=== PATIENT | female | born 1980 | race Caucasian/White ===

== ENCOUNTER 2017-04-12 08:59 | Emergency (ER) | payer OTHER ==
--- NOTE | ~2017-04-12 | CT4 ---
[facility] A Service of [facility] & [facility] RADIOLOGY TEXT RESULTS PATIENT: REINA KIRAN LOCATION: [facility] : 84 UNIT #: [id number] AGE: [address]: Cosmo Diaz MD SEX: F ORDER DR: [id number] [facility] [address] [place], [place] [address] [id number] E MR#: [id number] #: [id number] NAME: REINA KIRAN : 1980 SEX: F STUDY DATE/TIME: 04/12/2017 10:16 UNIT: [facility] ROOM: STUDY DESCRIPTION: CT Abd and Pelv Wo Cont Attending Physician: Cosmo Diaz M.D. Ordering Physician: Cosmo Diaz M.D. Primary Care Physician: Primary Care Physician No MEDICAL IMAGING REPORT This report is preliminary unless electronic signature is present EXAM CT of the abdomen and pelvis without contrast. Low back pain and dysuria for 3-[address] images were obtained from the dome of the diaphragm through the symphysis pubis. No oral or intravenous contrast material was administered. This CT exam was performed with one or more of the following radiation dose reduction techniques: Automatic exposure control, adjustment of mA and/or kV according to patient size, and iterative reconstruction. FINDINGS Images through the lung basis are clear. Liver and gallbladder appear unremarkable. Stomach and proximal small bowel are within normal limits, as are the adrenal glands, pancreas and kidneys given unenhanced technique. No urinary stones are identified. There is no hydronephrosis. Patient is noted to have a retroaortic left renal vein, which is a normal anatomic variant. No free fluid or adenopathy is seen within the abdomen. Appendix is visualized and is within normal limits and there is no evidence of mechanical bowel obstruction. Urinary bladder appears unremarkable. Patient does have fairly extensive fecal burden seen throughout the colon, particularly within the rectum, and correlation with any history of constipation is suggested. Uterus, I think, is probably within normal limits for unenhanced technique. There is probably a trace amount of free fluid within the pelvis, which can be a normal finding in a premenopausal woman. Review of bony windows does not demonstrate any aggressive osseous abnormalities. IMPRESSION [facility] A Service of [facility] & [facility] RADIOLOGY TEXT RESULTS PATIENT: REINA KIRAN LOCATION: [facility] : 84 UNIT #: [id number] AGE: [address]: Cosmo Diaz MD SEX: F ORDER DR: 1. No renal stones are identified. There is no hydroureteronephrosis. No distal ureteral or bladder stones are seen. 2. Fairly extensive fecal burden seen throughout the colon, particularly within the rectum. Correlation with any history of constipation is recommended. 3. Solid organs appear unremarkable. There is no evidence of mechanical bowel obstruction. 4. The appendix is visualized and is within normal limits. Dictated by... Hillary Holman M.D. THIS IS AN ELECTRONICALLY VERIFIED REPORT Hillary Holman M.D. at 04/13/2017 4:52 PM AFF/psc TD: 04/12/2017 17:27 JOB #: [id number] MEDICAL IMAGING REPORT Page 1 of 1 COPY
[~2017-04-12 08:59] MED LIST: CIPRO PO; VIBRAMYCIN100 M1 PO
[2017-04-12 09:35] LABS: URINE SOURCE CLEAN CATCH
[2017-04-12 10:20] LABS: BASOPHIL# 0.1 X10e3 (0-0.3); EOSINOPHIL# 1.2 X10e3 (0-0.7); EOSINOPHIL% 10.1 % (0.0-7.0); HEMATOCRIT 41.7 % (35.0-45.0); HEMOGLOBIN 13.6 gm/dL (12.0-16.0); LYMPHOCYTE# 2.5 X10e3 (1.0-3.5); LYMPHOCYTE% 20.5 % (17.0-45.0); MEAN CELL VOLUME 91.9 FL (83-96); MEAN CORPUSCULAR HEMOGLOBIN 30.1 PG (28-34); MEAN CORPUSCULAR HGB CONC 32.7 g/dL (30-36); MEAN PLATELET VOLUME 11.1 FL (6.5-11.5); NEUTROPHIL# 7.2 X10e3 (1.5-7.1); NEUTROPHIL% 60.4 % (40-75); RED BLOOD COUNT 4.54 X10e (3.90-5.30); RED CELL DISTRIBUTION WIDTH 14.4 % (11.0-15.5)
[2017-04-12 10:23] LABS: PLATELET COUNT 152 X10e3 (140-420)
[2017-04-12 10:24] LABS: DIFF IND YES
[2017-04-12 10:33] LABS: BILIRUBIN, DIRECT 0.1 mg/dL (0.0-0.2); BILIRUBIN,INDIRECT 0.1 mg/dL (0.0-0.9); BILIRUBIN,TOTAL 0.2 mg/dL (0.2-2.0); BUN/CREATININE RATIO 15.71; CALCIUM SERUM 8.8 mg/dL (8.4-10.2); CREATININE SERUM 0.7 mg/dL (0.6-1.4); POTASSIUM 3.7 mmol/L (3.5-5.1); PROTEIN TOTAL SERUM 7.1 g/dL (6.0-8.3)
[2017-04-12 10:52] LABS: PLATELET ESTIMATE NORMAL (NORMAL)
[2017-04-12 10:53] LABS: BURR CELLS PRESENT
[2017-04-12 11:02] LABS: URINE APPEARANCE SL HAZY; URINE BLOOD 2+ (NEG); URINE COLOR AMBER; URINE GLUCOSE NORM (NORM); URINE KETONE NEG (NEG); URINE LEUKOCYTE ESTERASE NEG (NEG); URINE NITRATE POS (NEG); URINE PROTEIN 1+ (NEG)
[2017-04-12 11:05] LABS: URINE BILIRUBIN NEG (NEG)
[2017-04-12 11:06] LABS: URINE UROBILINOGEN 12 MG/DL (NORM)
[2017-04-12 11:08] LABS: CULTURE INDICATED? YES; URINE BACTERIA AUWI 1+ (NEGATIVE); URINE MUCUS PRESENT; URINE SQUAMOUS EPITHELIAL CELL OCCAS /[HPF]; UWBCS1 AUWI 0-2 (0-5)
== END 2017-04-12 12:50 | disposition home or self-care (01) ==
LOC: CED 08:59
PROVIDERS: Emergency Medicine
DX: N39.0 Urinary tract infection, site not specified (principal)
CPT/HCPCS: 36415; 74176; 80048; 80076; 81003; 84703; 85025; 87086; 87088; 87186; 96361; 96374; 99284; J1885